=== PATIENT | female | born 1950 | race Caucasian/White ===

== ENCOUNTER 2022-01-31 16:11 | Emergency (ER) | payer OTHER ==
[~2022-01-31] VITALS: Ht 167.6 cm; Wt 117.9 kg
[~2022-01-31 16:11] MED LIST: ATOR20 PO; DIAZ5 PO; GABA400 PO; HCTZ/LISINOPRIL; LISI5 PO; METO25ER PO; OPTLUBOPO OP; OXYC10ER PO; OXYC1L PO; TRAM50 PO; [UNRECOGNIZED DRUG - CODE] PO
== END 2022-01-31 17:59 | disposition home or self-care (01) ==
LOC: ER 16:11
DX: U07.1 COVID-19 (principal); I10 Essential (primary) hypertension; Z79.899 Other long term (current) drug therapy
CPT/HCPCS: 71045; 93005; 93010; 99283-25

== ENCOUNTER 2023-01-08 12:21 | Day surgery (SDC) | payer OTHER ==
[~2023-01-08] VITALS: Ht 167.6 cm; Wt 119.5 kg
[~2023-01-08 12:21] MED LIST changes: +Acetaminophen650 M1 PO; +IBU800 MG PO; +METO50ER PO; +TOPI100 PO
[2023-01-08 14:52] VITALS: BP 165/105
--- NOTE | 2023-01-08 14:55 | NUR ---
01/08/23 1455 Katelyn Calderon PATIENT PRE-OP BP 183/101 AND 169/102. POST PROCEDURE IS WITHIN SAME RANGE OF BASELINE AT 153/103 AND 165/105.
== END 2023-01-08 14:40 | disposition home or self-care (01) ==
LOC: ORSCSDS 12:21
PROVIDERS: Internal Medicine Gastroenterology
PROC: 0DB68ZX Excision of Stomach, Via Natural or Artificial Opening Endoscopic, Diagnostic (ICD-10-PCS; principal; 2023-01-08 14:30)
DX: R13.10 Dysphagia, unspecified (principal); K21.9 Gastro-esophageal reflux disease without esophagitis; K31.89 Other diseases of stomach and duodenum; R10.13 Epigastric pain; M79.7 Fibromyalgia; E66.9 Obesity, unspecified; Z68.42 Body mass index [BMI] 45.0-49.9, adult; Z79.899 Other long term (current) drug therapy
CPT/HCPCS: 88305; 88342; J2001; J2405; J2704

== ENCOUNTER 2024-04-22 13:29 | Emergency (ER) | payer OTHER ==
[~2024-04-22] VITALS: Ht 167.6 cm; Wt 98.9 kg
[2024-04-22 13:52] VITALS: BP 173/110
[2024-04-22] MEDS ORDERED: OxyCODONE HCL 5 MG TAB PO ONE (15:50)
== END 2024-04-22 16:25 | disposition home or self-care (01) ==
LOC: ER 13:29
DX: M25.561 Pain in right knee (principal); W18.39XA Other fall on same level, initial encounter; I10 Essential (primary) hypertension; Z88.8 Allergy status to other drugs, medicaments and biological substances; Z91.048 Other nonmedicinal substance allergy status; Z79.899 Other long term (current) drug therapy
CPT/HCPCS: 73562-RT; 99283-25; A9270

== ENCOUNTER 2024-05-24 14:29 | Emergency (ER) | payer OTHER ==
[~2024-05-24] VITALS: Ht 167.6 cm; Wt 97.1 kg
[2024-05-24] MEDS ORDERED: Morphine Sulfate 4 MG/1 ML Injection IV ONE (18:30)
[2024-05-24] MEDS ORDERED: Ondansetron HCl 2 MG / ML 2ML Vial IV ONE (18:30)
[2024-05-24 20:30] VITALS: BP 156/67
[2024-05-25 13:41] LABS: Adenovirus F 40/41 Not Detected (NOT DETECT); Astrovirus Not Detected (NOT DETECT); Campylobacter Sp Not Detected (NOT DETECT); Cryptosporidium Not Detected (NOT DETECT); Cyclospora Cayetanensis Not Detected (NOT DETECT); E. Coli O157 Not Detected (NOT DETECT); Entamoeba Histolytica Not Detected (NOT DETECT); Enteroaggregative E. coli-EAEC Not Detected (NOT DETECT); Enteropathogenic E. coli-EPEC Not Detected (NOT DETECT); Enterotoxigenic E. coli-ETEC Not Detected (NOT DETECT); Giardia Lamblia Not Detected (NOT DETECT); Norovirus GI/GII Not Detected (NOT DETECT); Plesiomonas Shigelloides Not Detected (NOT DETECT); Rotavirus A Not Detected (NOT DETECT); Salmonella Sp Not Detected (NOT DETECT); Sapovirus Not Detected (NOT DETECT); Shiga Toxin-prod E. coli-STEC Not Detected (NOT DETECT); Shigella/Enteroin E. coli-EIEC Not Detected (NOT DETECT); Vibrio Cholerae Not Detected (NOT DETECT); Vibrio Sp Not Detected (NOT DETECT); Yersinia Enterocolitica Not Detected (NOT DETECT)
== END 2024-05-24 21:37 | disposition home or self-care (01) ==
LOC: ER 14:29
PROVIDERS: Emergency Medicine
DX: R19.7 Diarrhea, unspecified (principal); R11.2 Nausea with vomiting, unspecified; I10 Essential (primary) hypertension; E78.00 Pure hypercholesterolemia, unspecified; G47.30 Sleep apnea, unspecified; E78.5 Hyperlipidemia, unspecified; K21.9 Gastro-esophageal reflux disease without esophagitis; Z87.11 Personal history of peptic ulcer disease; Z90.49 Acquired absence of other specified parts of digestive tract
CPT/HCPCS: 74181; 87507; 96374; 96375; 99284-25; J2270; J2405